=== PATIENT | female | born 1950 | race Caucasian/White ===

== ENCOUNTER 2020-06-12 17:37 | Emergency (ER) | payer BC, MEDICARE ==
[2020-06-12] MEDS ORDERED: LORazepam 0.5 MG Tab PO ONE (19:00)
--- NOTE | 2020-06-12 19:07 | EDM.PDOC ---
ED HPI GENERAL MEDICAL PROBLEM - General Chief Complaint: Cardiovascular Problem Stated Complaint: HIGH BLOOD PRESSURE Time Seen by Provider: 06/12/20 18:10 Source of Information: Reports: RN History Limitations: Reports: No Limitations - History of Present Illness INITIAL COMMENTS - FREE TEXT/NARRATIVE: Pt had an episode of elevated blood pressure. She was directed by the nurse line to come in to be seen. Patient denies complaints of dizziness, headache, chest pain, numbness or tingling. She is concerned that this may be more anxiety than problems with her heart. She has grandkids at home visiting and she is concerned about 1 of them right now. She does state she worries more than she should and hold things in. She does take clonazepam for her anxiety. She takes a dose in the morning and she takes another dose at night when she goes to bed. She states she did take her first dose today. She also took her blood pressure medications earlier today as she normally takes them. She also states she was out with her [employer] shopping and engaging in more activity than she normally does. She was feeling a little tired and lay down to take a nap. About 10 minutes after laying down she asked her to take her blood pressure. This is when she called the nurse line and was recommended to come in. Onset: Today Onset Date: 06/12/20 Onset Time: 17:00 Duration: Hour(s): Location: Reports: Other (She relates the anxiety to tightness in her abdomen) Quality: Reports: Other Severity: Moderate Improves with: Reports: Rest Worsens with: Reports: Other (dwelling on the situation) Context: Reports: Other (Increased anxiety due to responsibility of grandkids) Associated Symptoms: Reports: No Other Symptoms - Related Data Allergies Allergy/AdvReac Type Severity Reaction Status Date / Time seafood Allergy Hives Uncoded 06/12/20 18:16 sunscreen Allergy Hives Uncoded 06/12/20 18:16 Home Meds: Home Meds Bumetanide 0.5 mg PO DAILY 06/12/20 [History] ClonazePAM [KlonoPIN] 0 mg PO DAILY 06/12/20 [History] Clopidogrel [Plavix] 75 mg PO DAILY 06/12/20 [History] Metoprolol Succinate 50 mg PO DAILY 06/12/20 [History] Potassium Chloride 10 meq PO DAILY 06/12/20 [History] atorvaSTATin [Lipitor] 20 mg PO DAILY 06/12/20 [History] lisinopriL [Lisinopril] 20 mg PO DAILY 06/12/20 [History] Past Medical History Cardiovascular History: Reports: CAD, High Cholesterol, Hypertension [employer] History: Reports: Neurological History: Reports: TIA Psychiatric History: Reports: Anxiety - Past Surgical History HEENT Surgical History: Reports: Tonsillectomy Cardiovascular Surgical History: Reports: Coronary Artery Stent Social & Family History - Tobacco Use Smoking Status *Q: Never Smoker - Caffeine Use Caffeine Use: Reports: Coffee - Recreational Drug Use Recreational Drug Use: No ED ROS GENERAL - Review of Systems Review Of Systems: See Below Constitutional: Denies: Fever, Chills, Malaise, Weakness, Fatigue, Diaphoresis HEENT: Reports: No Symptoms Respiratory: Denies: Shortness of Breath, Wheezing, Cough Cardiovascular: Reports: Blood Pressure Problem. Denies: Chest Pain, Dyspnea on Exertion, Edema, Lightheadedness, Orthopnea, Palpitations, Syncope Endocrine: Reports: Fatigue (More tired than usual related to grandkids being at home) GI/Abdominal: Reports: Other (Tightness she feels when she has increased anxiety.) : Reports: No Symptoms Musculoskeletal: Reports: No Symptoms Skin: Reports: No Symptoms Neurological: Denies: Confusion, Dizziness, Headache, Numbness, Paresthesia, Tingling, Weakness Psychiatric: Reports: Anxiety Hematologic/Lymphatic: Reports: No Symptoms Immunologic: Reports: No Symptoms ED EXAM, GENERAL - Physical Exam Exam: See Below Exam Limited By: No Limitations General Appearance: Alert, WD/WN, No Apparent Distress Head: Atraumatic, Normocephalic Neck: Normal Inspection, Supple, Non-Tender, Full Range of Motion Respiratory/Chest: No Respiratory Distress, Lungs Clear, Normal Breath Sounds, No Accessory Muscle Use, Chest Non-Tender Cardiovascular: Normal Peripheral Pulses, Regular Rate, Rhythm, No Edema, No Gallop, No JVD, No Murmur, No Rub GI/Abdominal: Normal Bowel Sounds, Soft, Non-Tender, No Organomegaly, No Distention, No Abnormal Bruit, No Mass Extremities: Normal Inspection, Normal Range of Motion, Non-Tender, No Pedal Edema, Normal Capillary Refill Neurological: Alert, Oriented, CN II-XII Intact, Normal Cognition, Normal Gait, Normal Reflexes Psychiatric: Normal Affect, Anxious Skin Exam: Warm, Dry, Intact, Normal Color, No Rash Lymphatic: No Adenopathy Course - Vital Signs Last Recorded V/S: Last Vital Signs Temp 36.8 C 06/12/20 18:14 Pulse 76 06/12/20 19:29 Resp 16 06/12/20 18:24 BP 151/78 H 06/12/20 19:29 Pulse Ox 95 06/12/20 19:29 - Orders/Labs/Meds Meds: Medications Discontinued Medications Generic Name Dose Route Start Last Admin Trade Name Denise PRN Reason Stop Dose Admin Lorazepam 0.5 mg 06/12/20 19:00 06/12/20 19:05 Ativan PO 06/12/20 19:01 0.5 mg ONETIME ONE Administration Departure - Departure Time of Disposition: 19:45 Disposition: Home, Self-Care 01 Condition: Good Clinical Impression: Anxiety Instructions: Living With Anxiety Referrals: PCP,None [Primary Care Provider] - Forms: ED Department Discharge Additional Instructions: Keep appointment with primary care provider, follow-up sooner if necessary, or may return to the ER if unable to be seen by provider Sepsis Event Note (ED) - Evaluation Sepsis Screening Result: No Definite Risk - Focused Exam Vital Signs: Vital Signs Temp Pulse Resp BP Pulse Ox 06/12/20 19:29 76 151/78 H 95 06/12/20 19:20 79 168/78 H 95 06/12/20 18:24 95 16 176/94 H 93 L 06/12/20 18:14 36.8 C 100 16 172/103 H 95 06/12/20 18:13 100 172/103 H 95 06/12/20 17:55 36.8 C 110 H 16 200/108 H 95 - Problem List Review Problem List Initiated/Reviewed/Updated: Yes - Assessment/Plan Assessment:: Elevated blood pressure due to anxiety. Patient has had a recent work-up and she states all of her labs were normal. I am unable to verify this. Her blood pressure readings are much less than those reported and those the nurse line sent her here for. Patient given anxiety med. Blood pressure is decreased. Patient feeling better and would like to go home. Plan: Keep your appointment with your primary care provider next Monday. If you continue to feel anxious call your provider to be seen earlier. You may return to the ER if need be prior to that time. Continue to take your medications as normal. Reduce stress as able.
== END 2020-06-12 19:45 | disposition home or self-care (01) ==
LOC: JP.ED 17:37
DX: F41.9 Anxiety disorder, unspecified (principal); I10 Essential (primary) hypertension; E78.00 Pure hypercholesterolemia, unspecified; I25.10 Atherosclerotic heart disease of native coronary artery without angina pectoris; Z90.49 Acquired absence of other specified parts of digestive tract; Z95.5 Presence of coronary angioplasty implant and graft; Z91.013 Allergy to seafood; Z91.09 Other allergy status, other than to drugs and biological substances; Z79.02 Long term (current) use of antithrombotics/antiplatelets; Z79.899 Other long term (current) drug therapy; Z86.73 Personal history of transient ischemic attack (TIA), and cerebral infarction without residual deficits
CPT/HCPCS: 99283; A9270